=== PATIENT | male | born 1935 | race Caucasian/White ===

== ENCOUNTER → 2017-01-24 | Outpatient (CLI) | payer MEDICARE ==
[~2017-01-24] MED LIST: WARF5TAB7 PO
== END | disposition home or self-care (01) ==
LOC: STAR 14:04
PROVIDERS: ATTEND Otolaryngology
DX: Z01.818 Encounter for other preprocedural examination (principal); K13.21 Leukoplakia of oral mucosa, including tongue; R79.1 Abnormal coagulation profile
CPT/HCPCS: 36415; 85610; 85730; 93005

== ENCOUNTER 2017-01-30 06:33 | Day surgery (SDC) | payer MEDICARE ==
[~2017-01-30] VITALS: Ht 181.6 cm; Wt 75.0 kg
[2017-01-30] MEDS ORDERED: LIDOCAINE/PF 1%, 30ML ONE (06:51)
[2017-01-30] MEDS ORDERED: EPINEPHRINE 1 MG/ML, 1ML ONE (06:51)
[2017-01-30 07:23] VITALS: BP 124/78
[2017-01-30] MEDS ORDERED: LACTATED RINGERS 1,000 ML IV SCH (07:26)
[2017-01-30] MEDS ORDERED: ROCURONIUM 10 MG/ML ONE (08:27)
[2017-01-30] MEDS ORDERED: DEXAMETHASONE 4 MG/ML, 1ML ONE (08:27)
[2017-01-30] MEDS ORDERED: CEFAZOLIN 1,000 MG ONE (08:27)
[2017-01-30] MEDS ORDERED: GLYCOPYRROLATE 0.2MG/1ML ONE (08:27)
[2017-01-30] MEDS ORDERED: PROPOFOL 10 MG/ML, 20ML ONE (08:27)
[2017-01-30] MEDS ORDERED: NEOSTIGMINE 1 MG/ML, 10ML ONE (08:27)
[2017-01-30] MEDS ORDERED: ONDANSETRON 2MG/ML, 2ML ONE (08:27)
[2017-01-30] MEDS ORDERED: FENTANYL PF 100 MCG/2ML ONE (08:29)
[2017-01-30] MEDS ORDERED: FENTANYL PF 100 MCG/2ML IV PRN (08:30)
[2017-01-30] MEDS ORDERED: METOPROLOL 1 MG/ML, 5ML IV PRN (08:30)
[2017-01-30] MEDS ORDERED: ONDANSETRON 2MG/ML, 2ML IVPush PRN (08:30)
[2017-01-30] MEDS ORDERED: HYDROmorphone 1 MG/ML, 1ML IV PRN (08:30)
[2017-01-30] MEDS ORDERED: EPHEDRINE 50 MG/ML, 1ML IVPush PRN (08:30)
[2017-01-30] MEDS ORDERED: hydrALAzine 20 MG/ML, 1ML IV PRN (08:30)
[2017-01-30] MEDS ORDERED: LABETALOL 5MG/ML, 20ML IV PRN (08:30)
[2017-01-30] MEDS ORDERED: OXYcodone 5 MG/5 ML ORAL.SOL UDC PO PRN (08:30)
[2017-01-30] MEDS ORDERED: ACETAMINOPHEN 325 MG TABLET PO PRN (08:30)
[2017-01-30] MEDS ORDERED: ALBUTEROL SULFATE 2.5 MG/3 ML NPPB PRN (08:30)
== END 2017-01-30 11:20 ==
LOC: OUT 06:33
PROVIDERS: ATTEND Otolaryngology
DX: K13.79 Other lesions of oral mucosa (principal); K13.21 Leukoplakia of oral mucosa, including tongue
CPT/HCPCS: 36415; 40812; 85610; 85730; 88304; 88331; J0171; J0690; J1100; J2405; J2704; J2710; J3010; J3490; J7120

== ENCOUNTER → 2017-05-02 | Outpatient (CLI) | payer MEDICARE | END | disposition home or self-care (01) | LOC: STAR 13:21 | PROVIDERS: ATTEND Thoracic Surgery (Cardiothoracic Vascular Surgery) | DX: Z01.818 Encounter for other preprocedural examination (principal); I31.3 Pericardial effusion (noninflammatory); R94.31 Abnormal electrocardiogram [ECG] [EKG]; I48.91 Unspecified atrial fibrillation | CPT/HCPCS: 93005 ==